=== PATIENT | female | born 1975 | race African-American/Black ===

== ENCOUNTER 2019-12-14 14:03 | Observation (INO) | payer OTHER ==
[2019-12-14 15:50] LABS: Absolute Lymphocytes (CBC) 1.3 K/uL (0.7-4.9); Basophils % 0.3 % (0-1.3); Hematocrit 36.9 % (36.0-45.0); Lymphocytes % 25.1 % (15.3-44.8); MPV 9.8 fL (7.6-11.3)
[2019-12-14 16:06] LABS: Protime INR 0.97
[2019-12-14 16:17] LABS: ALT/SGPT 25 U/L (12-78); AST/SGOT 22 U/L (15-37); Albumin 3.9 g/dL (3.4-5.0); Alkaline Phosphatase 82 U/L (45-117); BUN Blood Urea Nitrogen 39 mg/dL (7-18); Bicarbonate 23 mmol/L (21-32); Bilirubin Direct < 0.1 mg/dL (0-0.2); Bilirubin Total 0.3 mg/dL (0.2-1.0); Glucose Level 94 mg/dL (74-106); Magnesium 2.8 mg/dL (1.8-2.4); NT PRO-BNP 18 pg/mL (<125); Potassium 5.1 mmol/L (3.5-5.1); Protein, Total 8.2 g/dL (6.4-8.2); Sodium Level 136 mmol/L (136-145); Troponin (Emerg Dept Use Only) < 0.02 ng/mL (0.0-0.045)
--- OUTSIDE RECORDS SUMMARY | 2019-12-14 17:18 | XMS REPORT | Continuity of Care Document ---
:1975 Author Organization [facility] t Address [address] [place] [address] Dr. Mason [address] [place] [id number] Care Team Providers Name Role Phone Unavailable Unavailable Unavailable Problems This patient has no known problems. Allergies, Adverse Reactions, Alerts This patient has no known allergies or adverse reactions. Medications This patient has no known medications. Procedures This patient has no known procedures. Results This patient has no known results.
--- NOTE | 2019-12-14 17:48 | RAD REPORT ---
EXAM DESCRIPTION: Grace Single View12/14/2019 3:49 pm CLINICAL HISTORY: sob COMPARISON: none FINDINGS: The lungs appear clear of acute infiltrate. The heart is normal size IMPRESSION: No acute abnormalities displayed
--- NOTE | 2019-12-14 17:57 | ER ---
Nurse's Notes [facility] Name: Mercedes Mccormick Age: 44 yrs Sex: Female : 1975 Arrival Date: 12/14/2019 Time: 14:07 Bed 16 Private MD: Diagnosis: Acute kidney failure Presentation: 12/13 14:41 Chief complaint: Patient states: "I've been on some medication, at first I have HPN and ca1 I have hyperthyroidism. There were changes in my medications, my BP has been dropping, I feel dizzy, fatigued, lightheaded, and I can smell like ammonia in my breath. I had lab works done yesterday but I don't have the results yet. I have been feeling sick for a couple weeks now, but this time I have been feeling worse now". Coronavirus screen: Proceed with normal triage. Patient denies a cough. Patient denies shortness of breath or difficulty breathing. Patient denies measured and/or subjective temperature greater than 100.4F prior to today's visit. Patient denies travel on a cruise ship or to a country the [facility] currently lists as an affected area. Patient denies contact with known and/or suspected case of COVID-19. Ebola Screen: Patient negative for fever greater than or equal to 101.5 degrees Fahrenheit, and additional compatible Ebola Virus Disease symptoms Patient denies exposure to infectious person. Patient denies travel to an Ebola-affected area in the 21 days before illness onset. No symptoms or risks identified at this time. Initial Sepsis Screen: Does the patient meet any 2 criteria? No. Patient's initial sepsis screen is negative. Does the patient have a suspected source of infection? No. Patient's initial sepsis screen is negative. Risk Assessment: Do you want to hurt yourself or someone else? Patient reports no desire to harm self or others. Onset of symptoms was December 14, 2019. 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 - Social history:: Smoking status: Patient reports the use of cigarette tobacco products, smokes one pack cigarettes per day. Screenin:10 Abuse screen: Denies threats or abuse. Denies injuries from another. Nutritional jl7 screening: No deficits noted. Tuberculosis screening: No symptoms or risk factors identified. Fall Risk IV access (20 points). Total Harvey Fall Scale indicates No Risk (0-24 pts). Assessment: 15:15 General: Appears in no apparent distress. uncomfortable, Behavior is cooperative, jl7 anxious. Pain: Complains of pain in chest Pain currently is 0 out of 10 on a pain scale. at worst was 3 out of 10 on a pain scale. Quality of pain is described as "Tightness.". Neuro: Level of Consciousness is awake, alert, obeys commands, Oriented to person, place, time, situation. Cardiovascular: Patient's skin is warm and dry. Respiratory: Airway is patent Respiratory effort is even, unlabored, Respiratory pattern is regular, symmetrical. Derm: Skin is dry, Skin is normal, Skin temperature is warm. Musculoskeletal: No signs and/or symptoms reported regarding the musculoskeletal system. 16:15 Reassessment: Patient appears in no apparent distress at this time. No changes from jl7 previously documented assessment. Patient and/or family updated on plan of care and expected duration. Pain level reassessed. Patient is alert, oriented x 3, equal unlabored respirations, skin warm/dry/pink. 17:15 Reassessment: Patient appears in no apparent distress at this time. Patient and/or jl7 family updated on plan of care and expected duration. Pain level reassessed. Patient is alert, oriented x 3, equal unlabored respirations, skin warm/dry/pink. 18:11 Reassessment: Patient appears in no apparent distress at this time. Patient and/or jl7 family updated on plan of care and expected duration. Pain level reassessed. Patient is alert, oriented x 3, equal unlabored respirations, skin warm/dry/pink. at bedside. 19:20 Reassessment: Patient appears in no apparent distress at this time. Patient and/or ao family updated on plan of care and expected duration. Pain level reassessed. Received report form ROM Bernard. Patient o be admitted to the hospital. Waiting on a hospital room. 20:35 Reassessment: Attempt to call report and nurse was busy. Primary nurse Mami to call me ao back. 21:59 Reassessment: Patient appears in no apparent distress at this time. Patient and/or ao family updated on plan of care and expected duration. Pain level reassessed. Report given to ROM Murillo. Vital Signs: 14:41 BP 108 / 74; Pulse 87; Resp 16 S; Temp 97.6(TE); Pulse Ox 100% on R/A; Weight 81.65 kg ca1 (R); Height 5 ft. 3 in. (160.02 cm) (R); 15:30 BP 117 / 54; Pulse 67; Resp 17; Pulse Ox 100% ; jl7 16:00 BP 117 / 50; Pulse 66; Resp 18 S; Pulse Ox 100% ; jl7 18:11 BP 124 / 81; Pulse 73; Resp 17; Pulse Ox 100% ; jl7 19:20 BP 103 / 62; Pulse 85; Resp 16; Pulse Ox 100% on R/A; Pain 0/10; ao 14:41 Body Mass Index 31.89 (81.65 kg, 160.02 cm) ca1 ED Course: 14:07 Patient arrived in ED. ag5 14:48 Triage completed. ca1 14:50 Arm band placed on right wrist. ca1 15:02 Benjamin Otero PA is PHCP. jr8 15:02 Ash Ramon MD is Attending Physician. jr8 15:17 Joana Xie, ROM is Primary Nurse. jl7 15:30 Patient has correct armband on for positive identification. Placed in gown. Bed in low jl7 position. Call light in reach. Side rails up X2. admissions representative on. Pulse ox on. NIBP on. Warm blanket given. 15:45 Initial lab(s) drawn, by me, sent to lab. Inserted saline lock: 20 gauge in right jl7 antecubital area, using aseptic technique. Blood collected. 15:49 XRAY Chest (1 view) In Process Unspecified. EDMS 17:57 Chuck Osborn DO is Hospitalizing Provider. jr8 18:00 EKG done. jl7 18:11 No provider procedures requiring assistance completed. Patient admitted, IV remains in jl7 place. intact, No redness/swelling at site. 19:14 Rp Exam Complete US In Process Unspecified. EDMS Administered Medications: No medications were administered Point of Care Testing: Blood Glucose: 14:50 Blood Glucose: 93 mg/dL; ca1 Ranges: Outcome: 17:57 Decision to Hospitalize by Provider. jr8 21:59 Admitted to Med/surg room 205. ao 21:59 Condition: stable 21:59 Instructed on the need for admit. 22:01 Patient left the ED. ao Signatures: Dispatcher [employer] EDMS Benjamin Otero PA PA jr8 Horacio Vazquez, RN RN ao Joana Xie RN RN jl7 Dayanara Tanner RN RN ca1 Rafael Bentley ag5 Corrections: (The following items were deleted from the chart) 22:01 21:59 Reassessment: Patient appears in no apparent distress at this time. Patient ao and/or family updated on plan of care and expected duration. Pain level reassessed. Hand off to [facility] for transportation. Patient stable at this time ao
--- NOTE | 2019-12-14 17:58 | EDPHYS ---
Physician Documentation [facility] Name: Mercedes Mccormick Age: 44 yrs Sex: Female : 1975 Arrival Date: 12/14/2019 Time: 14:07 Bed 16 Private MD: ED Physician Ash Ramon HPI: 12/13 15:47 This 44 yrs old Black Female presents to ER via Ambulatory with complaints of Weakness. jr8 15:47 Patient stated that she has had general fatigue and weakness for past few weeks but jr8 recently has worsened. Stated that they did adjust her methimazole down but cannot think of anything else . Severity of symptoms: At their worst the symptoms were moderate in the emergency department the symptoms are unchanged. The patient has not experienced similar symptoms in the past. The patient has not recently seen a physician. 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 - Social history:: Smoking status: Patient reports the use of cigarette tobacco products, smokes one pack cigarettes per day. ROS: 15:47 Eyes: Negative for injury, pain, redness, and discharge, ENT: Negative for injury, jr8 pain, and discharge, Neck: Negative for injury, pain, and swelling, Cardiovascular: Negative for chest pain, palpitations, and edema, Respiratory: Negative for shortness of breath, cough, wheezing, and pleuritic chest pain, Abdomen/GI: Negative for abdominal pain, nausea, vomiting, diarrhea, and constipation, Back: Negative for injury and pain, MS/Extremity: Negative for injury and deformity, Skin: Negative for injury, rash, and discoloration. 15:47 Constitutional: Positive for fatigue, malaise. 15:47 Neuro: Positive for weakness. Exam: 15:47 Eyes: Pupils equal round and reactive to light, extra-ocular motions intact. Lids and jr8 lashes normal. Conjunctiva and sclera are non-icteric and not injected. Cornea within normal limits. Periorbital areas with no swelling, redness, or edema. ENT: Nares patent. No nasal discharge, no septal abnormalities noted. Tympanic membranes are normal and external auditory canals are clear. Oropharynx with no redness, swelling, or masses, exudates, or evidence of obstruction, uvula midline. Mucous membranes moist. Neck: Trachea midline, no thyromegaly or masses palpated, and no cervical lymphadenopathy. Supple, full range of motion without nuchal rigidity, or vertebral point tenderness. No Meningismus. Cardiovascular: Regular rate and rhythm with a normal S1 and S2. No gallops, murmurs, or rubs. Normal PMI, no JVD. No pulse deficits. Respiratory: Lungs have equal breath sounds bilaterally, clear to auscultation and percussion. No rales, rhonchi or wheezes noted. No increased work of breathing, no retractions or nasal flaring. Abdomen/GI: Soft, non-tender, with normal bowel sounds. No distension or tympany. No guarding or rebound. No evidence of tenderness throughout. Back: No spinal tenderness. No costovertebral tenderness. Full range of motion. Skin: Warm, dry with normal turgor. Normal color with no rashes, no lesions, and no evidence of cellulitis. MS/ Extremity: Pulses equal, no cyanosis. Neurovascular intact. Full, normal range of motion. Neuro: Awake and alert, GCS 15, oriented to person, place, time, and situation. Cranial nerves II-XII grossly intact. Motor strength 5/5 in all extremities. Sensory grossly intact. Cerebellar exam normal. Normal gait. Vital Signs: 14:41 BP 108 / 74; Pulse 87; Resp 16 S; Temp 97.6(TE); Pulse Ox 100% on R/A; Weight 81.65 kg ca1 (R); Height 5 ft. 3 in. (160.02 cm) (R); 15:30 BP 117 / 54; Pulse 67; Resp 17; Pulse Ox 100% ; jl7 16:00 BP 117 / 50; Pulse 66; Resp 18 S; Pulse Ox 100% ; jl7 18:11 BP 124 / 81; Pulse 73; Resp 17; Pulse Ox 100% ; jl7 19:20 BP 103 / 62; Pulse 85; Resp 16; Pulse Ox 100% on R/A; Pain 0/10; ao 14:41 Body Mass Index 31.89 (81.65 kg, 160.02 cm) ca1 MDM: 15:02 Patient medically screened. jr8 17:56 Data reviewed: vital signs, nurses notes, lab test result(s), EKG, radiologic studies, jr8 plain films. Data interpreted: Pulse oximetry: on room air is 100 %. Interpretation: normal. Counseling: I had a detailed discussion with the patient and/or guardian regarding: the historical points, exam findings, and any diagnostic results supporting the discharge/admit diagnosis, lab results, radiology results, the need for further work-up and treatment in the hospital. ED course: Talked with Dr. Osborn who was PCP to this patient. Las labs were about a year ago. Normal renal function at that time. Both in agreement that we should put her in and work her up further for this . 12/13 15:04 Order name: Glucose, Ancillary Testing; Complete Time: 15:05 EDMS 12/13 15:17 Order name: Basic Metabolic Panel; Complete Time: 16: 12/13 15:17 Order name: CBC with Diff; Complete Time: 16:17 [facility] 12/13 15:17 Order name: LFT's; Complete Time: 16: 12/13 15:17 Order name: Magnesium; Complete Time: 16:31 12/13 15:17 Order name: NT PRO-BNP; Complete Time: 16: [facility] 12/13 15:17 Order name: PT-INR; Complete Time: 16: 12/13 15:17 Order name: Troponin (emerg Dept Use Only); Complete Time: 16:31 12/13 15:17 Order name: XRAY Chest (1 view); Complete Time: 17:55 12/13 15:17 Order name: EKG; Complete Time: 15:18 12/13 15:17 Order name: Cardiac monitoring; Complete Time: 15: 12/13 15:17 Order name: TSH; Complete Time: 16:31 12/13 15:17 Order name: T4 Free; Complete Time: 16: 12/13 17:58 Order name: Rp Exam Complete US; Complete Time: 19:53 12/13 15:17 Order name: EKG - Nurse/Tech; Complete Time: 19:15 12/13 15:17 Order name: IV Saline Lock; Complete Time: 15:49 12/13 15:17 Order name: Labs collected and sent; Complete Time: 15:49 12/13 15:17 Order name: O2 Per Protocol; Complete Time: 15:32 12/13 15:17 Order name: O2 Sat Monitoring; Complete Time: 15:32 Administered Medications: No medications were administered Point of Care Testing: Blood Glucose: 14:50 Blood Glucose: 93 mg/dL; ca1 Ranges: Critical Glucose Levels:Adult <50 mg/dl or >400 mg/dl <40 mg/dl or >180 mg/dl Disposition: 12/14 07:15 Co-signature as Attending Physician, Ash Ramon MD I agree with the assessment and ledy plan of care. Disposition: 12/14/19 17:57 Hospitalization ordered by Chuck Osborn for Inpatient Admission. Preliminary diagnosis is Acute kidney failure. - Bed requested for Telemetry/MedSurg (Inpatient). - Status is Inpatient Admission. ao - Condition is Stable. - Problem is new. - Symptoms are unchanged. Signatures: Dispatcher [employer] EDAZ Ash Ramon MD MD cha Roszak, Josh, PA PA jr8 Emily Ledezma, ROM RN cg Horacio Vazquez RN RN ao Acob, Cheryl, RN RN ca1 Corrections: (The following items were deleted from the chart) 12/13 19:41 17:57 Hospitalization Ordered by Chuck Osborn DO for Inpatient Admission. Preliminary cg diagnosis is Acute kidney failure. Bed requested for Telemetry/MedSurg (Inpatient). Status is Inpatient Admission. Condition is Stable. Problem is new. Symptoms are unchanged. jr8 22:01 19:41 12/14/2019 17:57 Hospitalization Ordered by Chuck Osborn DO for Inpatient ao Admission. Preliminary diagnosis is Acute kidney failure. Bed requested for Telemetry/MedSurg (Inpatient). Status is Inpatient Admission. Condition is Stable. Problem is new. Symptoms are unchanged. cg
--- NOTE | 2019-12-14 18:57 | P.HP ---
Certification for Inpatient Patient admitted to: Observation With expected LOS: <2 Midnights Practitioner: I am a practitioner with admitting privileges, knowledge of patient current condition, hospital course, and medical plan of care. Services: Services provided to patient in accordance with Admission requirements found in Title 42 Section 412.3 of the Code of Federal Regulations Patient History Date of Service: 12/14/19 Reason for admission: N/V History of Present Illness: Patient is a 44-year-old female with unknown past medical history of hyperthyroidism (on methimazole), idiopathic intracranial hypertension, morbid obesity status post lap band. She present to the ER complaining of ongoing weakness and fatigue. Associated symptoms include nausea. She is being admitted because a newly found LUCY. Patient used to follow up with Dr. Osborn as her PCP but changed provider after she switched insurance. Outpatient workup has been unremarkable until today's lab findings. Patient denies any use of NSAIDs, denies any recent contrast exposure. Her appetite has been intact if not increased. She also denies any hematuria, abdominal pain, back pain, or recent infection. Physical Examination - Physical Exam General: In no apparent distress, Cooperative, Obese, Other (lethargic) HEENT: Atraumatic, Normocephalic, EOMI Neck: Supple Respiratory: Clear to auscultation bilaterally, Normal air movement Cardiovascular: No edema, Normal pulses, Regular rate/rhythm, Normal S1 S2 Musculoskeletal: No clubbing, No swelling, No contractures, No erythema, No ten derness, No warmth Integumentary: No rashes, No breakdown, No significant lesion, No tenderness/swelling, No erythema, No warmth, No cyanosis Neurological: Normal speech, Sensation intact Urinary: Other (No CVA) - Studies Laboratory Data (last 24 hrs) 12/14/19 15:40: PT 11.5, INR 0.97 12/14/19 15:40: WBC 5.3, Hgb 12.0, Hct 36.9, Plt Count 153 12/14/19 15:40: Sodium 136, Potassium 5.1, BUN 39 H, Creatinine 1.93 H, Glucose 94, Magnesium 2.8 H, Total Bilirubin 0.3, AST 22, ALT 25, Alkaline Phosphatase 82 Assessment and Plan - Problems (Diagnosis) (1) LUCY (acute kidney injury) Current Visit: Yes Status: Acute (2) Hyperthyroidism Current Visit: Yes Status: Acute (3) Pseudotumor cerebri Current Visit: Yes Status: Acute (4) Obesity Current Visit: Yes Status: Acute - Plan Assessment 45-year-old female with morbid obesity, hyperthyroidism and pseudotumor cerebri currently admitted with ongoing weakness and fatigue. Workup showing acute kidney injury. LUCY Hyperthyroidism Pseudotumor cerebral Morbid obesity Plan: Admit under observation with telemetry Check FENA IVF challenge Follow-up renal ultrasound Dr. Osborn (patient's PCP) has been consulted Patient will be discharged tomorrow - Advance Directives Does patient have a Living Will: No Does patient have a Durable POA for Healthcare: No
--- NOTE | 2019-12-14 19:39 | RAD REPORT ---
EXAM DESCRIPTION: US - Renal Ultrasound-Complete - 12/14/2019 7:13 pm CLINICAL HISTORY: . Renal failure COMPARISON: None. FINDINGS: The right kidney measures 9 centimeters with a mildly increased echotexture The left kidney measures 9 centimeters with a mildly increased echotexture Hydronephrosis is not seen. No gross abnormality of bladder IMPRESSION: Increased renal echotexture consistent with parenchymal disease
[2019-12-14 22:15] VITALS: BMI 31.6
[2019-12-14] MEDS: Ringers Lactate 1,000 ML IV SCH (23:11)
[2019-12-15] MEDS: Ringers Lactate 1,000 ML IV SCH (05:09)
[2019-12-15 06:01] LABS: Urine Protein/Creatinine Ratio 0.06 ratio (<0.15)
[2019-12-15] MEDS ORDERED: ACETAMINOPHEN 500 MG TAB PO PRN (07:57)
[2019-12-15 08:54] LABS: Potassium 4.7 mmol/L (3.5-5.1)
[2019-12-15] MEDS ORDERED: METHIMAZOLE 5 MG PO SCH (09:00)
[2019-12-15] MEDS ORDERED: METHIMAZOLE PO SCH (09:00)
[2019-12-15 10:30] VITALS: O2SAT 98
--- NOTE | 2019-12-15 11:26 | EKG ---
Test Date: 2019-12-14 Test Time: 16:20:02 Animal Therapist: CHELSIE MEASUREMENT RESULTS: Intervals: Rate: 69 HI: 178 QRSD: 80 QT: 404 QTc: 432 [place]: P: 62 HI: 178 QRS: 72 T: 44 INTERPRETIVE STATEMENTS: Sinus rhythm with marked sinus arrhythmia Otherwise normal ECG No previous ECG available for comparison Electronically Signed On 12-15-19 11:23:23 CDT by Antwon Evans
--- NOTE | 2019-12-15 11:53 | P.DS ---
Admission Date: 12/14/19 Discharge Date: 12/15/19 Disposition: ROUTINE DISCHARGE Discharge Condition: GOOD Reason for Admission: N/V - Problems (1) LUCY (acute kidney injury) Current Visit: Yes Status: Acute (2) Hyperthyroidism Current Visit: Yes Status: Acute (3) Pseudotumor cerebri Current Visit: Yes Status: Acute (4) Obesity Current Visit: Yes Status: Acute Brief History of Present Illness: Patient is a 44-year-old female with unknown past medical history of hyperthyroidism (on methimazole), idiopathic intracranial hypert ension, morbid obesity status post lap band. She present to the ER complaining of ongoing weakness and fatigue. Associated symptoms include nausea. She is being admitted because a newly found LUCY. Patient used to follow up with Dr. Osborn as her PCP but changed provider after she switched insurance. Outpatient workup has been unremarkable until today's lab findings. Patient denies any use of NSAIDs, denies any recent contrast exposure. Her appetite has been intact if not increased. She also denies any hematuria, abdominal pain, back pain, or recent infection. Hospital Course: Patient was admitted under observation. She was placed on short course of lactated Ringer infusion which improved her renal function. Her creatinine went from 1.93 to 1.35. Her renal ultrasound showed echogenicity. I have discussed the case with Service Rig Operator Dr. Osborn who is also the patient's PCP. Otherwise, her hospital course has been unremarkable. Vital Signs/Physical Exam: Temp Pulse Resp BP Pulse Ox 98.4 F 66 18 121/58 L 100 12/15/19 08:00 12/15/19 08:00 12/15/19 08:00 12/15/19 08:00 12/15/19 08:00 General: In no apparent distress, Cooperative, Other HEENT: Atraumatic, Normocephalic, EOMI Neck: Supple Respiratory: Clear to auscultation bilaterally, Normal air movement Cardiovascular: No edema, Normal pulses, Regular rate/rhythm, Normal S1 S2 Gastrointestinal: Normal bowel sounds, Soft and benign, Non-distended Musculoskeletal: No clubbing, No swelling, No contractures, No erythema, No tenderness, No warmth Integumentary: No rashes, No breakdown, No significant lesion, No tenderness/swelling, No erythema, No warmth, No cyanosis Neurological: Normal speech, Sensation intact, Normal affect Laboratory Data at Discharge: WBC 5.3 K/uL (4.3-10.9) 12/14/19 15:40 Hgb 12.0 g/dL (12.0-15.0) 12/14/19 15:40 Hct 36.9 % (36.0-45.0) 12/14/19 15:40 Plt Count 153 K/uL (152-406) 12/14/19 15:40 PT 11.5 SECONDS (9.5-12.5) 12/14/19 15:40 INR 0.97 12/14/19 15:40 Sodium 136 mmol/L (136-145) 12/15/19 08:29 Potassium 4.7 mmol/L (3.5-5.1) 12/15/19 08:29 BUN 32 mg/dL (7-18) H 12/15/19 08:29 Creatinine 1.35 mg/dL (0.55-1.3) H 12/15/19 08:29 Glucose 93 mg/dL (74-106) 12/15/19 08:29 Magnesium 2.8 mg/dL (1.8-2.4) H 12/14/19 15:40 Total Bilirubin 0.3 mg/dL (0.2-1.0) 12/14/19 15:40 AST 22 U/L (15-37) 12/14/19 15:40 ALT 25 U/L (12-78) 12/14/19 15:40 Alkaline Phosphatase 82 U/L (45-117) 12/14/19 15:40 Home Medications: Methimazole [Tapazole] 5 mg PO BID 12/14/19
--- NOTE | 2019-12-15 13:27 | P.CNS ---
Date of Consult: 12/15/19 Reason for Consult: LUCY Requesting Physician: Prince Melinda Berry Chief Complaint: N/V History of Present Illness: Patient is a 44-year-old female with unknown past medical history of hyperthyroidism (on methimazole), idiopathic intracranial hypertension, morbid obesity status post lap band. She present to the ER complaining of ongoing weakness and fatigue. Associated symptoms include nausea. She is being admitted because a newly found LUCY. Patient used to follow up with Dr. Osborn as her PCP but changed provider after she switched insurance. Outpatient workup has been unremarkable until today's lab findings. Patient denies any use of NSAIDs, denies any recent contrast exposure. Her appetite has been intact if not increased. She also denies any hematuria, abdominal pain, back pain, or recent infection. 15:47 This 44 yrs old Black Female presents to ER via Ambulatory with complaints of Weakness. jr8 15:47 Patient stated that she has had general fatigue and weakness for past few weeks but jr8 recently has worsened. Stated that they did adjust her methimazole down but cannot think of anything else . Severity of symptoms: At their worst the symptoms were moderate in the emergency department the symptoms are unchanged. The patient has not experienced similar symptoms in the past. The patient has not recently seen a physician. Allergies No Known Allergies Allergy (Verified 12/14/19 22:15) Home medications list reviewed: Yes Home Medications: Methimazole [Tapazole] 5 mg PO BID 12/14/19 - Past Medical/Surgical History Diabetic: No -: HTN -: hyperthryroidism -: -: lap band -: R eye sx - Social History Smoking Status: Current every day smoker Alcohol use: Yes CD- Drugs: No Caffeine use: Yes Place of Residence: Home Review of Systems 10-point ROS is otherwise unremarkable General: Weakness Physical Examination Temp Pulse Resp BP Pulse Ox 98.4 F 66 18 121/58 L 100 12/15/19 08:00 12/15/19 08:00 12/15/19 08:00 12/15/19 08:00 12/15/19 08:00 General: In no apparent distress, Oriented x3, Cooperative HEENT: Atraumatic Neck: Supple Respiratory: Clear to auscultation bilaterally Cardiovascular: No edema, Regular rate/rhythm Gastrointestinal: Soft and benign, Non-distended Musculoskeletal: No clubbing, No contractures Integumentary: No rashes, No cyanosis Neurological: Normal speech Laboratory Data (last 24 hrs) 12/14/19 15:40: PT 11.5, INR 0.97 12/14/19 15:40: WBC 5.3, Hgb 12.0, Hct 36.9, Plt Count 153 12/14/19 15:40: Sodium 136, Potassium 5.1, BUN 39 H, Creatinine 1.93 H, Glucose 94, Magnesium 2.8 H, Total Bilirubin 0.3, AST 22, ALT 25, Alkaline Phosphatase 82 Imagings Data: EXAM DESCRIPTION: US - Renal Ultrasound-Complete - 12/14/2019 7:13 pm CLINICAL HISTORY: . Renal failure COMPARISON: None. FINDINGS: The right kidney measures 9 centimeters with a mildly increased echotexture The left kidney measures 9 centimeters with a mildly increased echotexture Hydronephrosis is not seen. No gross abnormality of bladder IMPRESSION: Increased renal echotexture consistent with parenchymal disease EXAM DESCRIPTION: RADChest Single View12/14/2019 3:49 pm CLINICAL HISTORY: sob COMPARISON: none FINDINGS: The lungs appear clear of acute infiltrate. The heart is normal size IMPRESSION: No acute abnormalities displayed Conclusions/Impression: A/ LUCY, improving with IVF. HTN controlled. Pseudotumor cerebri Morbid Obesity P/ Continue current POC and Medications. Continue IVF. No NSAIDs. AM labs prn. Daily weight. Thank you kindly for the consultation. Case reviewed with Dr. Berry.
[2019-12-15 14:25] VITALS: BP 120/58; TEMP 97.8
== END 2019-12-15 16:38 | disposition home or self-care (01) ==
LOC: ER 14:03 → ERHOLD 19:30 → 2ND 21:28
PROVIDERS: ADMIT Internal Medicine; ATTEND Internal Medicine
DX: N17.9 Acute kidney failure, unspecified (principal); E05.90 Thyrotoxicosis, unspecified without thyrotoxic crisis or storm; G93.2 Benign intracranial hypertension; I10 Essential (primary) hypertension; F17.210 Nicotine dependence, cigarettes, uncomplicated; Z79.899 Other long term (current) drug therapy; Z98.84 Bariatric surgery status; Z11.59 Encounter for screening for other viral diseases; E66.9 Obesity, unspecified; Z68.31 Body mass index [BMI] 31.0-31.9, adult
CPT/HCPCS: 93005; 85025; 80048 ×2; 36415; 83735; 85610; 84300; 82947; 80076; 84443; 82570; 84484; 84439; 83880; 84156; 71045; 76770; 99285; U0002; J7120 ×2; G0378 ×3

== ENCOUNTER 2019-12-18 13:32 | Emergency (ER) | payer OTHER ==
[2019-12-18] MEDS ORDERED: NA CHLORIDE 0.9% 1,000 ML ONE (14:12)
[2019-12-18 14:15] LABS: Absolute Lymphocytes (CBC) 1.5 K/uL (0.7-4.9); Basophils % 0.3 % (0-1.3); Lymphocytes % 27.3 % (15.3-44.8); MPV 9.9 fL (7.6-11.3)
[2019-12-18 14:17] LABS: Urine Blood NEGATIVE (NEG); Urine Glucose NEGATIVE (NEG); Urine Protein NEGATIVE (NEG); Urine Specific Gravity >1.030 (1.005-1.030)
[2019-12-18 14:31] LABS: Potassium 3.5 mmol/L (3.5-5.1)
--- NOTE | 2019-12-18 15:06 | EDPHYS ---
Physician Documentation [facility] Name: Mercedes Mccomrick Age: 44 yrs Sex: Female : 1975 Arrival Date: 12/18/2019 Time: 13:35 Bed 13 Private MD: Ester Hernandez R ED Physician Dayron Weaver HPI: 12/17 15:03 This 44 yrs old Black Female presents to ER via Ambulatory with complaints of General kb Weakness. 15:03 The patient presents with decreased urination. Onset: The symptoms/episode kb began/occurred yesterday. Modifying factors: The symptoms are alleviated by nothing, the symptoms are aggravated by nothing. Associated signs and symptoms: Pertinent positives: urinating small amounts, low back and lower abd pain. Severity of symptoms: At their worst the symptoms were moderate, in the emergency department the symptoms are unchanged. The patient has experienced a previous episode, last week. The patient has been recently been admitted at [facility]. Pt reports she was recently admitted for acute kidney injury and she feels similar symptoms to when she was admitted then. . 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 - Social history:: Smoking status: Patient reports the use of cigarette tobacco products, smokes one-half pack cigarettes per day, Patient uses alcohol, only on a social basis. Patient/guardian denies using street drugs. ROS: 15:01 Constitutional: Negative for fever, chills, and weight loss, Cardiovascular: Negative kb for chest pain, palpitations, and edema, Respiratory: Negative for shortness of breath, cough, wheezing, and pleuritic chest pain, MS/Extremity: Negative for injury and deformity, Skin: Negative for injury, rash, and discoloration, Neuro: Negative for headache, weakness, numbness, tingling, and seizure. 15:01 Abdomen/GI: Positive for abdominal pain, Negative for nausea, vomiting, and diarrhea. 15:01 Back: Positive for pain at rest, of the low back area. 15:01 : Positive for small amounts. Exam: 15:01 Constitutional: This is a well developed, well nourished patient who is awake, alert, kb and in no acute distress. Head/Face: Normocephalic, atraumatic. Chest/axilla: Normal chest wall appearance and motion. Nontender with no deformity. No lesions are appreciated. Cardiovascular: Regular rate and rhythm with a normal S1 and S2. No gallops, murmurs, or rubs. Normal PMI, no JVD. No pulse deficits. Respiratory: Lungs have equal breath sounds bilaterally, clear to auscultation and percussion. No rales, rhonchi or wheezes noted. No increased work of breathing, no retractions or nasal flaring. Abdomen/GI: Soft, non-tender, with normal bowel sounds. No distension or tympany. No guarding or rebound. No evidence of tenderness throughout. Skin: Warm, dry with normal turgor. Normal color with no rashes, no lesions, and no evidence of cellulitis. MS/ Extremity: Pulses equal, no cyanosis. Neurovascular intact. Full, normal range of motion. Neuro: Awake and alert, GCS 15, oriented to person, place, time, and situation. Cranial nerves II-XII grossly intact. Motor strength 5/5 in all extremities. Sensory grossly intact. Cerebellar exam normal. Normal gait. Vital Signs: 13:39 BP 117 / 62; Pulse 98; Resp 18; Temp 98.4; Pulse Ox 98% ; Pain 6/10; ll1 14:00 BP 111 / 72; Pulse 92; Resp 18; Pulse Ox 100% on R/A; vc 15:00 BP 105 / 59; Pulse 62; Resp 18; Pulse Ox 100% on R/A; vc 16:00 BP 114 / 76; Pulse 57; Resp 18; Pulse Ox 100% on R/A; vc MDM: 13:47 Patient medically screened. kb 14:59 Data reviewed: vital signs, nurses notes. Data reviewed: old medical records, Pt's kb recent admission shows admission creatinine of around 1.9 and at discharge it was 1.35. Pt has follow up in place with dr nicole. Data interpreted: Pulse oximetry: on room air is 100 %. Interpretation: normal. Counseling: I had a detailed discussion with the patient and/or guardian regarding: the historical points, exam findings, and any diagnostic results supporting the discharge/admit diagnosis, lab results, the need for outpatient follow up, a family practitioner, to return to the emergency department if symptoms worsen or persist or if there are any questions or concerns that arise at home. 12/17 13:47 Order name: CBC with Diff; Complete Time: 14:24 kb 12/17 13:47 Order name: Basic Metabolic Panel; Complete Time: 14:36 kb 12/17 13:47 Order name: IV Start; Complete Time: 14:08 kb 12/17 14:03 Order name: Urine Dipstick--Ancillary (enter results); Complete Time: 14:24 mt 12/17 14:03 Order name: Urine --Ancillary (enter results); Complete Time: 14:24 mt 12/17 13:47 Order name: Urine Dipstick-Ancillary (obtain specimen); Complete Time: 14:08 kb 12/17 14:12 Order name: Bladder Scanner; Complete Time: 14:13 vc Administered Medications: 14:13 Drug: NS 0.9% 1000 ml Route: IV; Rate: 1 bolus; Site: right antecubital; vc 16:00 Follow up: IV Status: Completed infusion vc Disposition: 12/18 06:06 Co-signature as Attending Physician, Dayron Weaver MD I agree with the assessment and kdr plan of care. Disposition: 12/18/19 15:05 Discharged to Home. Impression: Volume depletion, unspecified. - Condition is Stable. - Discharge Instructions: Dehydration, Adult, [id number]. - Medication Reconciliation Form, Thank You Letter, Antibiotic Education, Prescription Opioid Use form. - Follow up: Emergency Department; When: As needed; Reason: Worsening of condition. Follow up: Private Physician; When: 2 - 3 days; Reason: Recheck today's complaints, Continuance of care, Re-evaluation by your physician. Signatures: Dispatcher [employer] Maliha Askew, MILLER FIRST-C DEANA-Dayron Tena MD MD kdr Beatrice Mcdaniels RN RN vc Gabriela Frye RN RN ll1 Corrections: (The following items were deleted from the chart) 12/17 16:16 15:05 12/18/2019 15:05 Discharged to Home. Impression: Volume depletion, unspecified. vc Condition is Stable. Forms are Medication Reconciliation Form, Thank You Letter, Antibiotic Education, Prescription Opioid Use. Follow up: Emergency Department; When: As needed; Reason: Worsening of condition. Follow up: Private Physician; When: 2 - 3 days; Reason: Recheck today's complaints, Continuance of care, Re-evaluation by your physician. kb
--- NOTE | 2019-12-18 15:06 | ER ---
Nurse's Notes [facility] Name: Mercedes Mccormick Age: 44 yrs Sex: Female : 1975 Arrival Date: 12/18/2019 Time: 13:35 Bed 13 Private MD: Ester Hernandez R Diagnosis: Volume depletion, unspecified Presentation: 12/17 13:39 Chief complaint: Patient states: Decreased urination with decreased urine flow since ll1 yesterday. Feels weak and cold with weird taste in mouth. States she was just released Tuesday for acute kidney injury, states she feels like this again. N/V with low back pain. Coronavirus screen: Proceed with normal triage. Patient denies a cough. Patient denies shortness of breath or difficulty breathing. Patient denies measured and/or subjective temperature greater than 100.4F prior to today's visit. Patient denies travel on a cruise ship or to a country the [facility] currently lists as an affected area. Patient denies contact with known and/or suspected case of COVID-19. covid test negative. Ebola Screen: Patient denies travel to an Ebola-affected area in the 21 days before illness onset. Initial Sepsis Screen: Does the patient meet any 2 criteria? HR > 90 bpm. No. Patient's initial sepsis screen is negative. Does the patient have a suspected source of infection? Yes: Other: kidney problems. Risk Assessment: Do you want to hurt yourself or someone else? Patient reports no desire to harm self or others. Onset of symptoms was December 17, 2019. 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 - Social history:: Smoking status: Patient reports the use of cigarette tobacco products, smokes one-half pack cigarettes per day, Patient uses alcohol, only on a social basis. Patient/guardian denies using street drugs. Screenin:00 Abuse screen: Denies threats or abuse. Nutritional screening: No deficits noted. vc Tuberculosis screening: No symptoms or risk factors identified. Fall Risk None identified. Assessment: 14:13 General: Appears in no apparent distress. uncomfortable, Behavior is calm, cooperative, vc appropriate for age. Pain: Complains of pain in left mid back and right mid back Pain does not radiate. Pain currently is 6 out of 10 on a pain scale. at worst was 6 out of 10 on a pain scale. Quality of pain is described as pressure, sharp, Is continuous. Neuro: Level of Consciousness is awake, alert, obeys commands, Oriented to person, place, time, situation, Appropriate for age. Cardiovascular: Capillary refill < 3 seconds Patient's skin is warm and dry. Respiratory: Airway is patent Respiratory effort is even, unlabored, Respiratory pattern is regular, symmetrical. GI: No signs and/or symptoms were reported involving the gastrointestinal system. : Reports cramping, lower back only urinating a small amount at a time. EENT: No signs and/or symptoms were reported regarding the EENT system. Derm: Skin is intact, is healthy with good turgor, Skin temperature is cool. Musculoskeletal: Circulation, motion, and sensation intact. Range of motion: intact in all extremities. 15:00 Reassessment: Patient appears in no apparent distress at this time. Patient and/or vc family updated on plan of care and expected duration. Pain level reassessed. Patient is alert, oriented x 3, equal unlabored respirations, skin warm/dry/pink. 15:14 Reassessment: DISCHARGE PENDING FLUIDS INFUSING. vc 16:08 Reassessment: Patient appears in no apparent distress at this time. Patient and/or vc family updated on plan of care and expected duration. Pain level reassessed. Patient is alert, oriented x 3, equal unlabored respirations, skin warm/dry/pink. Patient states symptoms have improved. Vital Signs: 13:39 BP 117 / 62; Pulse 98; Resp 18; Temp 98.4; Pulse Ox 98% ; Pain 6/10; ll1 14:00 BP 111 / 72; Pulse 92; Resp 18; Pulse Ox 100% on R/A; vc 15:00 BP 105 / 59; Pulse 62; Resp 18; Pulse Ox 100% on R/A; vc 16:00 BP 114 / 76; Pulse 57; Resp 18; Pulse Ox 100% on R/A; vc ED Course: 13:35 Patient arrived in ED. ag5 13:35 Ester Hernandez MD is Private Physician. ag5 13:43 Triage completed. ll1 13:44 Arm band placed on Patient placed in an exam room, on a stretcher. ll1 13:47 Maliha Gordon F[facility]-C [facility]. kb 13:47 Dayron Weaver MD is Attending Physician. kb 13:50 Gabriela Frye, RN is Primary Nurse. ll1 14:07 Initial lab(s) drawn, by me, sent to lab. Urine collected:. Inserted saline lock: 20 jp3 gauge in right antecubital area, using aseptic technique. Blood collected. Patient maintains SpO2 saturation greater than 95% on room air. 14:08 Placed in gown. Bed in low position. Call light in reach. Side rails up X 1. Warm jp3 blanket given. Verbal reassurance given. Pulse ox on. NIBP on. 16:16 No provider procedures requiring assistance completed. IV discontinued, intact, vc bleeding controlled, No redness/swelling at site. Pressure dressing applied. Administered Medications: 14:13 Drug: NS 0.9% 1000 ml Route: IV; Rate: 1 bolus; Site: right antecubital; vc 16:00 Follow up: IV Status: Completed infusion vc Outcome: 15:05 Discharge ordered by . kb 16:16 Discharged to home ambulatory. vc 16:16 Condition: good 16:16 Discharge instructions given to patient, Instructed on discharge instructions, follow up and referral plans. Demonstrated understanding of instructions, follow-up care. 16:16 Patient left the ED. vc Signatures: Maliha Gordon FNP-C FNP-[place] Mancera jp3 Rafael Bentley ag5 Beatrice Mcdaniels RN RN vc Gabriela Frye, ROM RN 1
[2019-12-18 16:50] VITALS: TEMP 98.4
[2019-12-18 16:54] VITALS: O2SAT 100
[2019-12-18 16:58] VITALS: BP 105/59
--- OUTSIDE RECORDS SUMMARY | 2019-12-18 17:38 | XMS REPORT | Continuity of Care Document ---
:1975 Author Organization [facility] t Address [facility] [address] [place] [id number] Care Team Providers Name Role Phone Unavailable Unavailable Unavailable Problems This patient has no known problems. Allergies, Adverse Reactions, Alerts This patient has no known allergies or adverse reactions. Medications This patient has no known medications. Procedures This patient has no known procedures. Results This patient has no known results.
== END 2019-12-18 16:16 | disposition home or self-care (01) ==
LOC: ER 13:32
DX: E86.9 Volume depletion, unspecified (principal); I10 Essential (primary) hypertension; F17.210 Nicotine dependence, cigarettes, uncomplicated
CPT/HCPCS: 96361; 85025; 80048; 36415; 81025; 81003; 96360; 99284; J7030

== ENCOUNTER 2020-04-06 12:14 | Emergency (ER) | payer OTHER ==
--- OUTSIDE RECORDS SUMMARY | 2020-04-06 12:16 | XMS REPORT | Continuity of Care Document ---
:1975 Author Organization [facility] t Address [address] [place] [address] Care Team Providers Name Role Phone Doctor Unassigned, Name Attending Clinician Unavailable Problems This patient has no known problems. Allergies, Adverse Reactions, Alerts This patient has no known allergies or adverse reactions. Medications This patient has no known medications. Procedures This patient has no known procedures. Encounters Start End Encounter Admission Attending Care Care Encounter Source Date/Time Date/Time Type Type Clinicians Facility Department ID 2019-12-25 2019-12-25 Orders Doctor YOUNGER [id number] 00:00:00 00:00:00 Only Unassigned, DOMENIC [id number] [place] [facility] [id number] Results This patient has no known results.
[2020-04-06] MEDS ORDERED: METOCLOPRAMIDE 10 MG/2mL INJ ONE (13:51)
[2020-04-06] MEDS ORDERED: NA CHLORIDE 0.9% 1,000 ML ONE (13:52)
[2020-04-06] MEDS ORDERED: KETOROLAC 30 MG/ML INJ ONE (13:52)
[2020-04-06] MEDS ORDERED: DIPHENHYDRAMINE 50 MG/ML VIAL ONE (13:52)
--- NOTE | 2020-04-06 14:10 | RAD REPORT ---
EXAM DESCRIPTION: CT - Head Brain Wo Cont - 04/06/2020 1:59 pm CLINICAL HISTORY: HEADACHE Headache, drowsiness COMPARISON: No comparisons TECHNIQUE: All CT scans are performed using dose optimization technique as appropriate and may inclu de automated exposure control or mA/KV adjustment according to patient size. FINDINGS: No intracranial hemorrhage, hydrocephalus or extra-axial fluid collection.No areas of brai n edema or evidence of midline shift. The paranasal sinuses and mastoids are clear. The calvarium is intact. IMPRESSION: No acute intracranial abnormality.
[2020-04-06 14:54] LABS: Absolute Lymphocytes (CBC) 1.1 K/uL (0.7-4.9); Basophils % 0.5 % (0-1.3); Hematocrit 31.9 % (36.0-45.0); Lymphocytes % 28.2 % (15.3-44.8); MPV 10.1 fL (7.6-11.3); RBC Red Blood Cell Count 3.36 M/uL (3.86-4.86)
[2020-04-06 15:05] LABS: BUN Blood Urea Nitrogen 11 mg/dL (7-18); Bicarbonate 25 mmol/L (21-32); Glucose Level 96 mg/dL (74-106); Potassium 3.4 mmol/L (3.5-5.1); Sodium Level 144 mmol/L (136-145)
--- NOTE | 2020-04-06 15:27 | ER ---
Nurse's Notes [facility] Name: Mercedes Mccormick Age: 44 yrs Sex: Female : 1975 Arrival Date: 04/06/2020 Time: 12:19 Bed 15 Private MD: Ester Hernandez R Diagnosis: Headache Presentation: 04/06 12:27 Chief complaint: Patient states: "I stated having a headache on Tuesday. I also had jd3 numbness and pain on my right hand after a iron infusion. yesterday I am having a headache and a tightness in my head as well as my right hand not feeling the same since then.". Coronavirus screen: At this time, the client does not indicate any symptoms associated with coronavirus-19. Ebola Screen: Patient negative for fever greater than or equal to 101.5 degrees Fahrenheit, and additional compatible Ebola Virus Disease symptoms. Initial Sepsis Screen: Does the patient meet any 2 criteria? No. Patient's initial sepsis screen is negative. Does the patient have a suspected source of infection? No. Patient's initial sepsis screen is negative. Risk Assessment: Do you want to hurt yourself or someone else? Patient reports no desire to harm self or others. Onset of symptoms was April 04, 2020. 12:27 Method Of Arrival: Ambulatory jd3 12:27 Acuity: MAGALIE 3 jd3 Triage Assessment: 13:50 Headache History: The patient has had previous headaches and this one is similar to tw2 previous episodes. 13:50 General: Appears in no apparent distress. uncomfortable, well groomed, Behavior is tw2 calm, cooperative, appropriate for age. Pain: Complains of pain in headache Pain currently is 10 out of 10 on a pain scale. Pain began 1 day ago. Also complains of nausea, photophobia. EENT: No signs and/or symptoms were reported regarding the EENT system. Neuro: Level of Consciousness is awake, alert, obeys commands, Oriented to person, place, time, situation. Cardiovascular: Heart tones S1 S2 Patient's skin is warm and dry. Respiratory: Airway is patent Respiratory effort is even, unlabored, Respiratory pattern is regular, symmetrical, Breath sounds are clear bilaterally. GI: Abdomen is round non-distended, Bowel sounds present X 4 quads. Reports nausea. : No signs and/or symptoms were reported regarding the genitourinary system. Derm: No signs and/or symptoms reported regarding the dermatologic system. Musculoskeletal: Range of motion: intact in all extremities. 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 - Social history:: Smoking status: Patient reports the use of cigarette tobacco products, smokes one-half pack cigarettes per day. Screenin:03 Abuse screen: Denies threats or abuse. Nutritional screening: No deficits noted. tw2 Tuberculosis screening: No symptoms or risk factors identified. Fall Risk None identified. Assessment: 12:56 Reassessment: provider at bedside at this time. tw2 13:50 Reassessment: see TRIAGE assessment. tw2 14:03 Reassessment: pt back from CT at this time, needing to use the restroom. tw2 14:06 Reassessment: notified ROM Parra of need for IV at this time. tw2 14:41 Reassessment: Patient appears in no apparent distress at this time. No changes from tw2 previously documented assessment. Patient and/or family updated on plan of care and expected duration. Pain level reassessed. Patient is alert, oriented x 3, equal unlabored respirations, skin warm/dry/pink. 15:12 Reassessment: Patient appears in no apparent distress at this time. Patient and/or tw2 family updated on plan of care and expected duration. Pain level reassessed. Patient is alert, oriented x 3, equal unlabored respirations, skin warm/dry/pink. Patient states feeling better. Patient states symptoms have improved. 15:20 Reassessment: provider at bedside at this time. tw2 15:38 Reassessment: Patient appears in no apparent distress at this time. No changes from tw2 previously documented assessment. Patient and/or family updated on plan of care and expected duration. Pain level reassessed. Patient is alert, oriented x 3, equal unlabored respirations, skin warm/dry/pink. Vital Signs: 12:32 BP 125 / 77; Pulse 80; Resp 16; Temp 98.1; Pulse Ox 100% ; Weight 83.91 kg; Height 5 jd3 ft. 3 in. (160.02 cm); Pain 5/10; 13:30 BP 116 / 60; Pulse 51; Resp 17; Pulse Ox 99% on R/A; Pain 5/10; tw2 14:39 BP 120 / 61; Pulse 57; Resp 16; Pulse Ox 100% on R/A; tw2 15:12 BP 107 / 57; Pulse 51; Resp 16; Pulse Ox 100% on R/A; Pain 2/10; tw2 12:32 Body Mass Index 32.77 (83.91 kg, 160.02 cm) jd3 ED Course: 12:19 Patient arrived in ED. ag5 12:19 Ester Hernandez MD is Private Physician. ag5 12:30 Triage completed. jd3 12:34 Arm band placed on. jd3 12:44 Placed in gown. Bed in low position. Call light in reach. Adult w/ patient. Pulse ox tw2 on. NIBP on. 12:45 Dru Trejo NP is PHCP. pm1 12:45 Luis Armando Mckee MD is Attending Physician. pm1 12:56 Kami Griffin RN is Primary Nurse. tw2 13:40 Missed attempt(s): 22 gauge in right per Tech. Kahlil Bleeding controlled, band aid tw2 applied, catheter tip intact. Missed attempt(s): 22 gauge in right hand. per Tech. Kahlil Bleeding controlled, band aid applied, catheter tip intact. 13:51 Missed attempt(s): 22 gauge in left antecubital area. Bleeding controlled, band aid tw2 applied, catheter tip intact. Missed attempt(s): 22 gauge in left antecubital area. Bleeding controlled, band aid applied, catheter tip intact. 13:59 CT Head Brain wo Cont In Process Unspecified. EDMS 14:15 Inserted saline lock: 22 gauge in left upper arm, using aseptic technique. aa5 15:38 No provider procedures requiring assistance completed. IV discontinued, intact, tw2 bleeding controlled, No redness/swelling at site. Pressure dressing applied. Administered Medications: 14:18 Drug: NS 0.9% 1000 ml Route: IV; Rate: 1000 ml; Site: left upper arm; aa5 15:32 Follow up: Response: No adverse reaction; IV Status: Completed infusion; IV Intake: tw2 1000ml 14:20 Drug: Reglan 10 mg Route: IVP; Site: left upper arm; tw2 15:12 Follow up: Response: No adverse reaction; Nausea is decreased tw2 14:22 Drug: Benadryl 25 mg Route: IVP; Site: left upper arm; tw2 15:12 Follow up: Response: No adverse reaction tw2 14:24 Drug: TORadol 30 mg Route: IVP; Site: left upper arm; tw2 15:12 Follow up: Response: No adverse reaction; Pain is decreased tw2 Intake: 15:32 IV: 1000ml; Total: 1000ml. tw2 Outcome: 15:26 Discharge ordered by MD. pm1 15:38 Discharged to home ambulatory, with significant other. tw2 15:38 Condition: stable 15:38 Discharge instructions given to patient, significant other, Instructed on discharge instructions, follow up and referral plans. no drinking with medication, no driving heavy equipment, medication usage, Demonstrated understanding of instructions, follow-up care, medications, Prescriptions given X 2. 15:39 Patient left the ED. tw2 Signatures: Dispatcher [employer] EDMS Aida Monae RN RN aa5 Dru Trejo NP [employer]ONDENCE SCHOOL TEACHER pm1 Kami Griffin RN RN tw2 Moreno Parmar RN RN jRafael Mccauley ag5 Corrections: (The following items were deleted from the chart) 14:11 14:10 Headache History: The patient has had previous headaches and this one is similar tw2 to previous episodes, tw2
--- NOTE | 2020-04-06 15:27 | EDPHYS ---
Physician Documentation [facility] Name: Mercedes Mccormick Age: 44 yrs Sex: Female : 1975 Arrival Date: 04/06/2020 Time: 12:19 Bed 15 Private MD: Ester Hernandez R ED Physician Luis Armando Mckee HPI: 04/06 13:09 This 44 yrs old Black Female presents to ER via Ambulatory with complaints of Headache pm1 > 24hrs Old, Nausea. 13:09 The patient complains of pain to the forehead. The patient describes the headache as pm1 aching, constant. Onset: The symptoms/episode began/occurred 2 day(s) ago. Associated signs and symptoms: Pertinent positives: Right arm pain and numbness on Tuesday with infusion of iron therapy. Patient's right arm pain and numbness resolved. Severity of symptoms: in the emergency department the pain is unchanged. Headache History: The patient has had previous headaches and this one is similar to previous episodes. The symptoms are alleviated by Darkened room, quiet, the symptoms are aggravated by lights, noise. The patient has experienced similar episodes in the past, a few times. 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 - Social history:: Smoking status: Patient reports the use of cigarette tobacco products, smokes one-half pack cigarettes per day. ROS: 13:09 Constitutional: Negative for fever, chills, and weight loss, Eyes: Negative for injury, pm1 pain, redness, and discharge, Cardiovascular: Negative for chest pain, palpitations, and edema, Respiratory: Negative for shortness of breath, cough, wheezing, and pleuritic chest pain. 13:09 Back: Negative for injury and pain, MS/Extremity: Negative for injury and deformity, Skin: Negative for injury, rash, and discoloration. 13:09 Abdomen/GI: Positive for nausea, Negative for abdominal pain, vomiting, diarrhea. 13:09 Neuro: Positive for headache, Negative for weakness. Exam: 13:09 Constitutional: This is a well developed, well nourished patient who is awake, alert, pm1 and in no acute distress. 13:09 ENT: Nares patent. No nasal discharge, no septal abnormalities noted. Tympanic membranes are normal and external auditory canals are clear. Oropharynx with no redness, swelling, or masses, exudates, or evidence of obstruction, uvula midline. Mucous membranes moist. Neck: Trachea midline, no thyromegaly or masses palpated, and no cervical lymphadenopathy. Supple, full range of motion without nuchal rigidity, or vertebral point tenderness. No Meningismus. 13:09 Skin: Warm, dry with normal turgor. Normal color with no rashes, no lesions, and no evidence of cellulitis. 13:09 Head/face: Noted is no obvious of injury or deformity except Sinus tenderness, that is mild, is located over the right frontal sinus and left frontal sinus. 13:09 Cardiovascular: Exam negative for acute changes, Rate: normal, Rhythm: regular, Pulses: no pulse deficits are appreciated. 13:09 Respiratory: Exam negative for acute changes, respiratory distress, shortness of breath. 13:09 Abdomen/GI: Inspection: abdomen appears normal, Palpation: abdomen is soft and non-tender, in all quadrants. 13:09 Musculoskeletal/extremity: Exam is negative for acute changes, Extremities: all appear grossly normal, with no appreciated pain with palpation, right arm without any signs of cellulitis, tenderness, or phlebitis , ROM: intact in all extremities, Circulation is intact in all extremities. Pulses: noted to be 2+ in the right radial artery and right brachial artery. 13:09 Neuro: Exam negative for acute changes, Orientation: is normal, Mentation: is normal, Memory: is normal, Cerebellar function: normal finger to nose testing, Motor: is normal, moves all fours, Sensation: is normal, no obvious gross deficits. 15:16 Eyes: Periorbital structures: appear normal, no acute changes, Pupils: no acute pm1 changes, normal size, normal reaction to light, equal, round, and reactive to light and accomodation, Extraocular movements: intact throughout, Conjunctiva: normal, no acute changes, Corneas: no acute changes, Anterior chamber: no acute changes, funduscopic exam reveals discs that are sharp, no appreciated papilledema. Vital Signs: 12:32 BP 125 / 77; Pulse 80; Resp 16; Temp 98.1; Pulse Ox 100% ; Weight 83.91 kg; Height 5 jd3 ft. 3 in. (160.02 cm); Pain 5/10; 13:30 BP 116 / 60; Pulse 51; Resp 17; Pulse Ox 99% on R/A; Pain 5/10; tw2 14:39 BP 120 / 61; Pulse 57; Resp 16; Pulse Ox 100% on R/A; tw2 15:12 BP 107 / 57; Pulse 51; Resp 16; Pulse Ox 100% on R/A; Pain 2/10; tw2 12:32 Body Mass Index 32.77 (83.91 kg, 160.02 cm) jd3 MDM: 12:45 Patient medically screened. pm1 15:16 Data reviewed: vital signs. Data interpreted: Pulse oximetry: on room air is 100 %. pm1 Interpretation: normal. 15:25 ED course: Patient's pain 0/10. Headache completely resolved and patient is ready to go pm1 home. 15:25 Counseling: I had a detailed discussion with the patient and/or guardian regarding: the pm1 historical points, exam findings, and any diagnostic results supporting the discharge/admit diagnosis, lab results, radiology results, the need for outpatient follow up, to return to the emergency department if symptoms worsen or persist or if there are any questions or concerns that arise at home. 04/06 13:03 Order name: CBC with Diff; Complete Time: 15:16 pm1 04/06 13:03 Order name: BMP; Complete Time: 15:16 pm1 04/06 13:03 Order name: CT Head Brain wo Cont; Complete Time: 14:10 pm1 04/06 13:03 Order name: IV Saline Lock; Complete Time: 14:25 pm1 Administered Medications: 14:18 Drug: NS 0.9% 1000 ml Route: IV; Rate: 1000 ml; Site: left upper arm; aa5 15:32 Follow up: Response: No adverse reaction; IV Status: Completed infusion; IV Intake: tw2 1000ml 14:20 Drug: Reglan 10 mg Route: IVP; Site: left upper arm; tw2 15:12 Follow up: Response: No adverse reaction; Nausea is decreased tw2 14:22 Drug: Benadryl 25 mg Route: IVP; Site: left upper arm; tw2 15:12 Follow up: Response: No adverse reaction tw2 14:24 Drug: TORadol 30 mg Route: IVP; Site: left upper arm; tw2 15:12 Follow up: Response: No adverse reaction; Pain is decreased tw2 Disposition: 16:17 Co-signature as Attending Physician, Luis Armando Mckee MD. rn Disposition: 04/06/20 15:26 Discharged to Home. Impression: Headache. - Condition is Stable. - Discharge Instructions: General Headache Without Cause. - Prescriptions for Fiorinal 50- 325-40 mg Oral Capsule - take 1 capsule by ORAL route every 4 hours As needed - not to exceed 6 capsules per day; 20 capsule. Zofran ODT 4 mg Oral tablet,disintegrating - place 1 tablet by TRANSLINGUAL route every 8 hours As needed; 12 tablet. - Medication Reconciliation Form, Thank You Letter, Antibiotic Education, Prescription Opioid Use form. - Follow up: Emergency Department; When: As needed; Reason: Worsening of condition. Follow up: Private Physician; When: 2 - 3 days; Reason: Recheck today's complaints, Continuance of care, Re-evaluation by your physician. - Problem is new. - Symptoms have improved. Signatures: Dispatcher [employer] EDLuis Armando Hernandez MD MD rn Calderon, Audri, RN RN aa5 Dru Trejo, MATERIAL HANDLER 2ND SHIFT MATERIAL HANDLER 2ND SHIFT pm1 Kami Griffin RN RN tw2 Moreno Parmar RN RN jd3 Corrections: (The following items were deleted from the chart) 15:39 15:26 04/06/2020 15:26 Discharged to Home. Impression: Headache. Condition is Stable. tw2 Forms are Medication Reconciliation Form, Thank You Letter, Antibiotic Education, Prescription Opioid Use. Follow up: Emergency Department; When: As needed; Reason: Worsening of condition. Follow up: Private Physician; When: 2 - 3 days; Reason: Recheck today's complaints, Continuance of care, Re-evaluation by your physician. Problem is new. Symptoms have improved. pm1
[2020-04-06 15:57] VITALS: TEMP 98.1
[2020-04-06 16:00] VITALS: O2SAT 100
[2020-04-06 16:02] VITALS: BP 107/57
== END 2020-04-06 15:39 | disposition home or self-care (01) ==
LOC: ER 12:14
DX: R51.9 Headache, unspecified (principal); I10 Essential (primary) hypertension; E05.90 Thyrotoxicosis, unspecified without thyrotoxic crisis or storm; F17.210 Nicotine dependence, cigarettes, uncomplicated
CPT/HCPCS: 96361; 85025; 80048; 36415; 70450; 96375; 96374; 99284; J2765; J1200; J7030

== ENCOUNTER 2020-09-23 06:31 | Day surgery (SDC) | payer OTHER ==
[2020-09-19 13:47] LABS: Absolute Lymphocytes (CBC) 1.2 K/uL (0.7-4.9); Basophils % 0.5 % (0-1.3); Hematocrit 38.1 % (36.0-45.0); Lymphocytes % 24.9 % (15.3-44.8); MPV 9.1 fL (7.6-11.3)
[2020-09-19 14:14] LABS: Protime INR 0.95
[2020-09-23] MEDS ORDERED: Ringers Lactate 1,000 ML IV ONE (06:58)
[2020-09-23] MEDS ORDERED: dexAMETHasone 10 MG/ML VIAL ONE (07:16)
[2020-09-23] MEDS ORDERED: MIDAZOLAM HCL 2 MG/2 ML INJ ONE (07:16)
[2020-09-23] MEDS ORDERED: LIDOCAINE 2% MPF 5 ML VIAL ONE ×2 (07:16)
[2020-09-23] MEDS ORDERED: NS 0.9% VIAL 10 ML ONE ×2 (07:16→08:07)
[2020-09-23] MEDS ORDERED: FENTANYL CITR 100 MCG/2 ML ONE (07:16)
[2020-09-23] MEDS ORDERED: propofoL 200 MG/20 ML VIAL IV ONE (07:16)
[2020-09-23] MEDS ORDERED: LIDOCAINE 1% 20 ML MDV ONE (07:37)
[2020-09-23] MEDS ORDERED: CEFAZOLIN SODIUM 1 GM/VIAL ONE (08:06)
--- NOTE | 2020-09-23 08:58 | RAD REPORT ---
EXAM DESCRIPTION: RAD - Foot Left 2 View - 09/23/2020 8:52 am CLINICAL HISTORY: Left Foot surgery FINDINGS: A fluoroscopic spot images obtained. Fluoroscopy time 0.[address] Cantor is performing a bunionectomy.
--- NOTE | 2020-09-23 09:04 | P.OP ---
Preoperative diagnosis: right hallux valgus with plantar flexed third metatarsal Postoperative diagnosis: same as above Primary procedure: right offset v bunionectomy Secondary procedure: right third metatarsal osteotomy Anesthesia: mac Estimated blood loss: <10cc Specimen: none Findings: as above Operative Technique: dictated Complications: None Implants: nelida screws and allowrap Fluids & blood products: none Transferred to: Recovery Room Condition: Good
[2020-09-23 09:20] VITALS: O2SAT 100
[2020-09-23 09:52] VITALS: BP 136/68; TEMP 96.6
--- NOTE | 2020-09-23 11:59 | OP ---
Surgeon: Lexx Cantor Jr, DPM Preoperative Diagnoses: Right hallux abducto valgus and third metatarsal plantar flexion. Postoperative Diagnoses: Right hallux abducto valgus and third metatarsal plantar flexion. Procedure: Right offset V bunionectomy and third metatarsal osteotomy. Pathology: None. Anesthesia: TIVA with a popliteal nerve block. An 18 cc of 1:1 of 0.5% Marcaine and 1% lidocaine plain. Hemostasis: Pneumatic ankle tourniquet at 250 mmHg. Estimated Blood Loss: Less than 10 cc. Materials: 3-0 and 4-0 Vicryl, 4-0 Prolene. A 2.0 x 16 mm and 2.0 x 15 mm cannulated [place] screw, and a 2.0 x 12 mm snap-off screw as well as 4 x 4 allograft. Injectables: None. Complications: None. Procedure In Detail: The patient brought into [facility] operating room, placed on the OR table in supine position. The patient placed under sedation by the anesthesiologist and an 18 cc of 1:1 of 0.5% Marcaine and 1% lidocaine plain were injected in a local fashion in the right lower extremity. A well-padded pneumatic ankle tourniquet was applied to the right lower extremity. The patient was prepped and draped in the usual aseptic manner. The right lower extremity was examined utilizing Esmarch bandage. Pneumatic ankle tourniquet insufflated to 250 mmHg. Attention was directed to the dorsal aspect of the right first metatarsophalangeal joint with some linear incision was made over this joint. The skin incision was carried from superficial deep trigger, cauterize, ligate, and retract all neurovascular structures as necessary. Level of the first MPJ capsule and inverted L capsulotomy was performed utilizing a 15 blade. Following this, utilizing a sharp dissection, all capsular ligamentous structures free from the dorsal, medial, lateral plantar aspect at the first metatarsal. Next, utilizing oscillating bone saw and retraction, the prominent medial eminence was resected and attention was directed laterally in the first intermetatarsal space, at which time a lateral capsular release, fibular sesamoid release, and adductor tendon release was performed. The leg was bent at 90 degrees. Attention was directed to the medial aspect of the first metatarsal head, at which time the offset V osteotomy cuts were made. Plantar cut was made first, dorsal cut was made second, was made to the medial collateral. The capital fragment was transposed laterally as desired. The capital fragment was placed in the desired position to verify using fluoroscopy and fixated utilizing a 2.0 x 16 mm and 2.5 x 15 mm cannulated Patrice screw. Utilizing oscillating bone saw, the prominent medial eminence was resected. Attention was then directed laterally to the third metatarsal phalangeal joint, at which time a linear incision was made over this area. The skin incision was carried from superficial deep trigger, cauterize, ligate, and retract all neurovascular structures as necessary. Level of the third MPJ capsule, a linear capsulotomy was performed followed by sharp disection of the dorsal, medial, and lateral aspect of the head of the third metatarsal. Utilizing oscillating bone saw, a Alissa cut osteotomy was made, dorsal, distal, plantar proximal. The capital fragment was transposed proximally as desired and fixated utilizing a 2.0 x 12 mm snap-off Patrice screw. All rough edges were smoothed, utilizing a power servando. The wounds were irrigated with copious amounts of normal sterile saline. Allograft was applied to each osteotomy site. Enclosures obtained utilizing 3-0 Vicryl for deep tissues, 4-0 Vicryl for subcutaneous tissues, and 4-0 Prolene for skin. Sterile dressing consisting of Xeroform, 4x4s, Jaclyn and an Jeremy wrap was applied to the right lower extremity. Pneumatic ankle tourniquet was deflated with prompt hyperemic response being noted to the right lower extremity. The patient noted to tolerate the procedure and anesthesia well. Transferred from OR to recovery with vital signs stable and neurovascular status intact. RS/MODL Voice ID: [id number] Report ID: [id number] RENETTA
== END 2020-09-23 11:26 | disposition home or self-care (01) ==
LOC: OR 06:31
PROVIDERS: ATTEND Podiatrist Foot & Ankle Surgery
PROC: 0QSN04Z Reposition Right Metatarsal with Internal Fixation Device, Open Approach (ICD-10-PCS; principal; 2020-09-23 07:30)
DX: M21.611 Bunion of right foot (principal); Z20.822 Contact with and (suspected) exposure to COVID-19
CPT/HCPCS: 85025; 36415; 81025; 85610; 85730; 73620; 28296; U0003; J2704; J2250; J3010; J1100; J7120; J0690

== ENCOUNTER 2021-04-25 11:06 | Emergency (ER) | payer OTHER ==
[2021-04-25 11:32] LABS: Urine Blood Negative (Negative); Urine Glucose Negative (Negative); Urine Protein Negative (Negative); Urine Specific Gravity 1.025 (1.005-1.030); Urine pH 5.5 (5.0-7.0)
[2021-04-25 11:54] LABS: Urine Specific Gravity/Preg 1.025 (1.005-1.030)
[2021-04-25 12:01] LABS: Basophils % 0.4 % (0-1.3); Hematocrit 34.5 % (36.0-45.0); Lymphocytes % 22.9 % (15.3-44.8); MPV 7.8 fL (7.6-11.3)
[2021-04-25 12:03] LABS: Urine Bacteria <20 /HPF (<20); Urine Mucus SLIGHT /HPF (NONE SEEN); Urine RBC NONE SEEN /HPF (NONE SEEN)
[2021-04-25] MEDS ORDERED: NA CHLORIDE 0.9% 1,000 ML ONE (12:06)
[2021-04-25 12:17] LABS: ALT/SGPT 21 U/L (12-78); AST/SGOT 14 U/L (15-37); Albumin 3.4 g/dL (3.4-5.0); Alkaline Phosphatase 72 U/L (45-117); BUN Blood Urea Nitrogen 13 mg/dL (7-18); Bicarbonate 27 mmol/L (21-32); Bilirubin Direct 0.1 mg/dL (0-0.2); Bilirubin Total 0.2 mg/dL (0.2-1.0); Glucose Level 89 mg/dL (74-106); Lipase 119 U/L (73-393); Potassium 3.8 mmol/L (3.5-5.1); Protein, Total 7.2 g/dL (6.4-8.2); Sodium Level 143 mmol/L (136-145)
[2021-04-25] MEDS ORDERED: KETOROLAC 30 MG/ML INJ ONE (13:32)
[2021-04-25] MEDS ORDERED: DIPHENHYDRAMINE 50 MG/ML VIAL ONE (14:08)
--- NOTE | 2021-04-25 14:27 | RAD REPORT ---
EXAM DESCRIPTION: CTAbdomen Pelvis W Contrast - 04/25/2021 2:01 pm CLINICAL HISTORY: Dysuria;Abd pain COMPARISON: <Comparisons> TECHNIQUE: CT of the abdomen and pelvis was performed. All CT scans are performed using dose optimization technique as appropriate and may include automated exposure control or mA/KV adjustment according to patient size. FINDINGS: Lower chest: Moderately thickened distal esophagus. Liver: No acute abnormality or suspicious lesions. Biliary: No biliary ductal dilatation. Stomach: Gastric lap band surgery. Duodenum: No significant focal abnormality. Pancreas: No significant abnormality. Spleen: No significant abnormality. Adrenal: No suspicious lesions. Kidney/ureter: No hydronephrosis. No renal calculi. Retroperitoneum: No retroperitoneal adenopathy. Vascular: No aneurysm. Bowel: No significant focal abnormality. Normal appendix. Peritoneum: No ascites or free air. Bladder: Grossly unremarkable. Reproductive: No adnexal masses. Bones: No acute fracture. Other: n/a IMPRESSION: No acute intra- abdominal abnormality. Moderate distal esophageal wall thickening sugges ting esophagitis. Endoscopy could better evaluate.
--- NOTE | 2021-04-25 14:34 | EDPHYS ---
Physician Documentation [facility] Name: Mercedes Mccormick Age: 45 yrs Sex: Female : 1975 Arrival Date: 04/25/2021 Time: 11:06 Bed 10 Private MD: ED Physician Essence Mcknight HPI: 04/25 11:37 This 45 yrs old Black Female presents to ER via Ambulatory with complaints of Dysuria. pm1 11:37 The patient presents with urinary symptoms, dysuria, frequency. pm1 11:37 Onset: The symptoms/episode began/occurred 2 day(s) ago. Modifying factors: The pm1 symptoms are alleviated by nothing, the symptoms are aggravated by urinating. Associated signs and symptoms: Pertinent positives: abdominal pain suprapubic area, Pertinent negatives: diarrhea, fever, nausea, vomiting. Severity of symptoms: in the emergency department the symptoms are unchanged. The patient has experienced a previous episode, many years ago, and the symptoms today are exactly the same, cystitis with kayla. The patient has not recently seen a physician. 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 - Social history:: Smoking status: Patient reports the use of cigarette tobacco products, smokes one-half pack cigarettes per day. ROS: 11:37 Positive for urinary frequency, burning with urination, Negative for vaginal pm1 bleeding, vaginal discharge, vaginal itching. 11:37 Constitutional: Negative for fever, chills, and weight loss, Cardiovascular: Negative for chest pain, palpitations, and edema, Respiratory: Negative for shortness of breath, cough, wheezing, and pleuritic chest pain. 11:37 Back: Negative for injury and pain, MS/Extremity: Negative for injury and deformity, Skin: Negative for injury, rash, and discoloration. 11:37 Neuro: Negative for headache, weakness, numbness, tingling, and seizure. 11:37 Abdomen/GI: Positive for abdominal pain, of the suprapubic area, Negative for nausea, vomiting, and diarrhea. 11:37 All other systems are negative. Exam: 11:37 Constitutional: This is a well developed, well nourished patient who is awake, alert, pm1 and in no acute distress. Head/Face: Normocephalic, atraumatic. 11:37 Skin: Warm, dry with normal turgor. Normal color with no rashes, no lesions, and no evidence of cellulitis. MS/ Extremity: Pulses equal, no cyanosis. Neurovascular intact. Full, normal range of motion. 11:37 Cardiovascular: Exam negative for acute changes, Rate: normal, Rhythm: regular, Pulses: no pulse deficits are appreciated. 11:37 Respiratory: Exam negative for acute changes, respiratory distress, shortness of breath. 11:37 Abdomen/GI: Inspection: abdomen appears normal, Palpation: abdomen is soft and non-tender, in all quadrants. 11:37 Back: Exam negative for acute changes, pain, is absent. 11:37 Neuro: Exam negative for acute changes, Orientation: is normal, Mentation: is normal, Motor: is normal, moves all fours. Vital Signs: 11:14 BP 141 / 89; Pulse 85; Resp 16; Temp 98.5(O); Pulse Ox 100% ; Weight 87.54 kg; Height 5 vg1 ft. 3 in. (160.02 cm); Pain 4/10; 11:35 BP 139 / 88; Pulse 82; Resp 17; Pulse Ox 100% on R/A; Pain 6/10; ld1 13:16 BP 129 / 84; Pulse 83; Resp 18; Pulse Ox 100% on R/A; ld1 11:14 Body Mass Index 34.19 (87.54 kg, 160.02 cm) vg1 MDM: 11:36 Patient medically screened. pm1 13:48 Data reviewed: vital signs. Data interpreted: Pulse oximetry: on room air is 100 %. pm1 Interpretation: normal. 14:33 Counseling: I had a detailed discussion with the patient and/or guardian regarding: the pm1 historical points, exam findings, and any diagnostic results supporting the discharge/admit diagnosis, lab results, radiology results, the need for outpatient follow up, to return to the emergency department if symptoms worsen or persist or if there are any questions or concerns that arise at home. 14:33 Special discussion: I discussed with the patient the need to follow-up with the pm1 PCP/specialist for the noted incidental finding on X-ray/CT scanning. follow up with GI for endoscopy. 04/25 11:32 Order name: Urine Dipstick-Ancillary; Complete Time: 11:36 EDMS 04/25 11:33 Order name: Urine --Ancillary (enter results); Complete Time: 11:59 eb 04/25 11:36 Order name: Urine Microscopic Only; Complete Time: 12:12 pm1 04/25 11:36 Order name: Basic Metabolic Panel; Complete Time: 12:20 pm1 04/25 11:36 Order name: CBC with Diff; Complete Time: 12:03 pm1 04/25 11:36 Order name: Hepatic Function; Complete Time: 12:20 pm1 04/25 11:36 Order name: Lipase; Complete Time: 12:20 pm1 04/25 11:36 Order name: IV Saline Lock; Complete Time: 11:52 pm1 04/25 11:36 Order name: Labs collected and sent; Complete Time: 11:52 pm1 04/25 13:27 Order name: CT Abd/Pelvis - IV Contrast Only; Complete Time: 14:29 pm1 Administered Medications: 12:10 Drug: NS 0.9% 1000 ml Route: IV; Rate: 1000 ml; Site: right antecubital; ld1 13:20 Follow up: IV Status: Completed infusion; IV Intake: 1000ml jl7 13:36 Drug: Ketorolac 30 mg Route: IVP; Site: right antecubital; ld1 13:36 Follow up: Response: No adverse reaction ld1 14:12 Drug: Benadryl (diphenhydrAMINE) 25 mg Route: IVP; Site: right antecubital; vg1 14:45 Follow up: Response: No adverse reaction; Marked relief of symptoms jl7 14:45 Drug: Rocephin (cefTRIAXone) 1 grams Route: IV; Rate: calculated rate; Site: right jl7 antecubital; 14:48 Follow up: Response: No adverse reaction; IV Status: Completed infusion jl7 Disposition Summary: 04/25/21 14:33 Discharge Ordered Location: Home pm1 Problem: new pm1 Symptoms: have improved pm1 Condition: Stable pm1 Diagnosis - Dysuria pm1 - Abdominal pain, unspecified pm1 Followup: pm1 - With: Emergency Department - When: As needed - Reason: Worsening of condition Followup: pm1 - With: Private Physician - When: 2 - 3 days - Reason: Recheck today's complaints, Continuance of care, Re-evaluation by your physician Discharge Instructions: - Discharge Summary Sheet pm1 - Abdominal Pain, Adult pm1 - Dysuria pm1 Forms: - Medication Reconciliation Form pm1 - Thank You Letter pm1 - Antibiotic Education pm1 - Prescription Opioid Use pm1 Prescriptions: - Bactrim DS 800-160 mg Oral Tablet - take 1 tablet by ORAL route every 12 hours for 10 days; 20 tablet; Refills: 0, pm1 Product Selection Permitted Addendum: 05/04/2021 05:25 Co-signature as Attending Physician, Essence Mcknight MD PA/ASSEMBLIES AND INSTALLATIONS INSPECTOR's history reviewed, m a2 patient interviewed, and examined. I agree with assessment and care plan and confirm the diagnosis (es) above. Signatures: Dispatcher [employer] EDMS Dru Trejo, ASSEMBLIES AND INSTALLATIONS INSPECTOR ASSEMBLIES AND INSTALLATIONS INSPECTOR pm1 Joana Xie RN RN jl7 Essence Mcknight MD MD ma2 Corin Ledezma RN RN vg1 Valencia Jimenez RN RN ld1 Corrections: (The following items were deleted from the chart) 04/25 13:53 13:51 The patient presents with urinary symptoms, dysuria, frequency, pm1 pm1
--- NOTE | 2021-04-25 14:34 | ER ---
Nurse's Notes [facility] Name: Mercedes Mccormick Age: 45 yrs Sex: Female : 1975 Arrival Date: 04/25/2021 Time: 11:06 Bed 10 Private MD: Diagnosis: Dysuria;Abdominal pain, unspecified Presentation: 04/25 11:14 Chief complaint: Patient states: Urine frequency with pain, pelvic pain and 'sweet vg1 taste in mouth' began yesterday. States was unable to sleep last night due to pressure in pelvic area and the frequency of needing to urinate; also states NV. Stated was admitted in November 2019 for Acute Kidney Injury. Denies blood in urine. Coronavirus screen: Vaccine status: Patient reports receiving the 2nd dose of the covid vaccine. Client denies travel out of the [place] in the last 14 days. Ebola Screen: Patient negative for fever greater than or equal to 101.5 degrees Fahrenheit, and additional compatible Ebola Virus Disease symptoms. Initial Sepsis Screen: Does the patient meet any 2 criteria? No. Patient's initial sepsis screen is negative. Does the patient have a suspected source of infection? No. Patient's initial sepsis screen is negative. Risk Assessment: Do you want to hurt yourself or someone else? Patient reports no desire to harm self or others. Onset of symptoms was April 24, 2021. 11:14 Method Of Arrival: Ambulatory vg1 11:14 Acuity: MAGALIE 3 vg1 Triage Assessment: 11:17 General: Appears in no apparent distress. uncomfortable, Behavior is calm, cooperative. vg1 Pain: Complains of pain in pelvis Pain currently is 4 out of 10 on a pain scale. GI: Reports nausea, vomiting. : Reports burning with urination, pain urinary frequency, Denies vaginal bleeding. 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 - Social history:: Smoking status: Patient reports the use of cigarette tobacco products, smokes one-half pack cigarettes per day. Screenin:35 Abuse screen: Denies threats or abuse. Denies injuries from another. Nutritional ld1 screening: No deficits noted. Tuberculosis screening: No symptoms or risk factors identified. Fall Risk None identified. Assessment: 11:35 General: Appears in no apparent distress. comfortable, Behavior is calm, cooperative, ld1 appropriate for age. Pain: Complains of pain in right lower quadrant, left lower quadrant, right inguinal area and left inguinal area Pain does not radiate. Pain currently is 6 out of 10 on a pain scale. Quality of pain is described as throbbing, Pain began 2-3 days ago. Is continuous. Neuro: Level of Consciousness is awake, alert, obeys commands, Oriented to person, place, time, situation, Appropriate for age. Cardiovascular: Capillary refill < 3 seconds Patient's skin is warm and dry. Respiratory: Airway is patent Respiratory effort is even, unlabored, Respiratory pattern is regular, symmetrical. GI: Abdomen is round non-distended. : Reports urgency, urinary frequency. EENT: No signs and/or symptoms were reported regarding the EENT system. Derm: No signs and/or symptoms reported regarding the dermatologic system. Musculoskeletal: No signs and/or symptoms reported regarding the musculoskeletal system. 13:16 Reassessment: Patient appears in no apparent distress at this time. No changes from ld1 previously documented assessment. Patient and/or family updated on plan of care and expected duration. Pain level reassessed. Patient is alert, oriented x 3, equal unlabored respirations, skin warm/dry/pink. 14:08 Reassessment: Patient appears in no apparent distress at this time. Patient and/or vg1 family updated on plan of care and expected duration. Pain level reassessed. Patient is alert, oriented x 3, equal unlabored respirations, skin warm/dry/pink. Pt states Right hand is itchy after receiving the CT contrast. Provider notified. Vital Signs: 11:14 BP 141 / 89; Pulse 85; Resp 16; Temp 98.5(O); Pulse Ox 100% ; Weight 87.54 kg; Height 5 vg1 ft. 3 in. (160.02 cm); Pain 4/10; 11:35 BP 139 / 88; Pulse 82; Resp 17; Pulse Ox 100% on R/A; Pain 6/10; ld1 13:16 BP 129 / 84; Pulse 83; Resp 18; Pulse Ox 100% on R/A; ld1 11:14 Body Mass Index 34.19 (87.54 kg, 160.02 cm) vg1 ED Course: 11:06 Patient arrived in ED. ds1 11:17 Triage completed. vg1 11:17 Arm band placed on. vg1 11:27 Dru Trejo NP is PHCP. pm1 11:27 Essence Mcknight MD is Attending Physician. pm1 11:35 Valencia Jimenez RN is Primary Nurse. ld1 11:35 Patient has correct armband on for positive identification. Bed in low position. Call ld1 light in reach. Side rails up X2. Pulse ox on. NIBP on. Door closed. Noise minimized. Warm blanket given. 11:35 No provider procedures requiring assistance completed. ld1 11:52 Inserted saline lock: 20 gauge in right antecubital area, using aseptic technique. ld1 Blood collected. 14:01 CT Abd/Pelvis - IV Contrast Only In Process Unspecified. EDMS 15:00 IV discontinued, intact, bleeding controlled, No redness/swelling at site. Pressure jl7 dressing applied. Administered Medications: 12:10 Drug: NS 0.9% 1000 ml Route: IV; Rate: 1000 ml; Site: right antecubital; ld1 13:20 Follow up: IV Status: Completed infusion; IV Intake: 1000ml jl7 13:36 Drug: Ketorolac 30 mg Route: IVP; Site: right antecubital; ld1 13:36 Follow up: Response: No adverse reaction ld1 14:12 Drug: Benadryl (diphenhydrAMINE) 25 mg Route: IVP; Site: right antecubital; vg1 14:45 Follow up: Response: No adverse reaction; Marked relief of symptoms jl7 14:45 Drug: Rocephin (cefTRIAXone) 1 grams Route: IV; Rate: calculated rate; Site: right jl7 antecubital; 14:48 Follow up: Response: No adverse reaction; IV Status: Completed infusion jl7 Intake: 13:20 IV: 1000ml; Total: 1000ml. jl7 Outcome: 14:33 Discharge ordered by . pm1 15:00 Discharged to home ambulatory. jl7 15:00 Condition: stable 15:00 Discharge instructions given to patient, Instructed on discharge instructions, follow up and referral plans. medication usage, Demonstrated understanding of instructions, follow-up care, medications, Prescriptions given X 1. 15:05 Patient left the ED. jl7 Signatures: Dispatcher [employer] EDSD Isabella Pacheco ds1 Dru Trejo, KHALIDA CABLE SPLICER APPRENTICE pm1 Joana Xie RN RN jl7 Corin Ledezma RN RN vg1 Valencia Jimenez RN RN ld1
[2021-04-25] MEDS ORDERED: CEFTRIAXONE 1000 MG/VIAL ONE (14:50)
[2021-04-25 15:26] VITALS: TEMP 98.5; O2SAT 100
[2021-04-25 15:29] VITALS: BP 129/84
--- OUTSIDE RECORDS SUMMARY | 2021-05-02 14:09 | XMS REPORT | Continuity of Care Document ---
:1975 Author Organization [facility] t Address [address] [place] [address] Care Team Providers Name Role Phone MEAGHAN Attending Clinician Unavailable Theresa POTTS Attending Clinician Unavailable Doctor Unassigned, Name Attending Clinician Unavailable EDILSON Attending Clinician Unavailable Payers Payer Name Policy Type Policy Number Effective Date Expiration Date Natividad [employer]iz [facility] MEDIC[facility] [id number] 2018 COMPLETE 00:00:00 Problems This patient has no known problems. Allergies, Adverse Reactions, Alerts Allergy Allergy Status Severity Reaction(s) Onset Inactive Treating Comm ents Source Name Type Date Date Clinician NO KNOWN Drug Active [facility]ERG[facility] Class [facility] Medications This patient has no known medications. Procedures This patient has no known procedures. Encounters Start End Encounter Admission Attending Care Care Encounter Source Date/Time Date/Time Type Type Clinicians Facility Department ID 2021-05-27 2021-05-27 Outpatient Gregory HARDING [facility] [id number] [facility] 09:30:00 09:30:00 DAVID [id number] [facility] 2020-10-03 2020-10-03 Outpatient Gregory POTTS [facility] [id number] [facility] 14:30:00 14:30:00 JOE [facility] 2020-09-12 2020-09-12 Outpatient Gregory POTTS [facility] [id number] [facility] 14:30:00 14:30:00 JOE [facility] 2019-12-25 2019-12-25 Orders Doctor AREN [id number] 00:00:00 00:00:00 Only Unassigned, DOMENIC [id number] [place] [facility] [id number] 2019-12-03 2019-12-03 Outpatient Gregory WAGGONER [facility] [id number] [facility] 14:30:00 14:30:00 ANGIE [id number] [facility] 2019-12-03 2019-12-03 Outpatient Gregory WAGGONER [facility] [id number] [facility] 14:30:00 14:30:00 ANGIE [facility] Results This patient has no known results.
== END 2021-04-25 15:05 | disposition home or self-care (01) ==
LOC: ER 11:06
DX: R10.9 Unspecified abdominal pain (principal); I10 Essential (primary) hypertension; N17.9 Acute kidney failure, unspecified
CPT/HCPCS: 96361; 85025; 80048; 36415; 81025; 80076; 83690; 74177; 96375; 96374; 99284; Q9967; J1200; J7030; 81003; 81015